=== PATIENT | female | born 1995 | race Caucasian/White ===

== ENCOUNTER → 2020-12-24 09:44 | Outpatient (CLI) | payer OTHER, SELFPAY ==
--- NOTE | 2020-12-24 09:49 | DI.MRI.S_ITS ---
PROCEDURE: MR TMJ WO CON INDICATIONS: Jaw pain TECHNIQUE: Axial T1 spin echo, coronal and sagittal PD fast spin echo through the temporomandibular joints, in both the closed- and open-mouth positions. COMPARISON: None. FINDINGS: Image quality: Degraded by patient motion artifact. Right: Joint is normally aligned on closed and open-mouth positioning. Articular disc demonstrates normal morphology and is anteriorly displaced in the closed-mouth position. The displaced articular disc completely reduces in the open-mouth position. Small right temporomandibular joint effusion. No bony erosions or osteophytes. Left: Joint is normally aligned on closed and open-mouth positioning. Articular disk demonstrates normal morphology and is anteriorly disc placed in the closed mouth position. The displaced articular disc does not reduce in the open-mouth position. Small left temporomandibular joint effusion. No bony erosions or osteophytes. IMPRESSION: 1. Anteriorly displaced right temporomandibular joint articular disc with reduction in the open-mouth position. 2. Anteriorly displaced left temporomandibular joint articular disc which does not reduce in the open-mouth position. 3. Bilateral temporomandibular joint effusions. Dictated by: Melany Bennett MD, PhD on 12/24/2020 at 12:15 Approved by: Melany Bennett MD, PhD on 12/24/2020 at 12:26
== END ==
PROVIDERS: Referring Provider Dentist Oral and Maxillofacial Surgery; Visit Provider Dentist Oral and Maxillofacial Surgery
DX: R68.84 Jaw pain (principal); M26.633 Articular disc disorder of bilateral temporomandibular joint
CPT/HCPCS: 70336